=== PATIENT | female | born 1950 | race African-American/Black ===

== ENCOUNTER 2023-02-18 18:10 | Inpatient (IN) | payer MEDICARE, OTHER ==
[~2023-02-18] VITALS: Ht 162.6 cm; Wt 154.2 kg
[~2023-02-18 18:10] MED LIST: DILT60TA41 MT; ENOX40SY27 SQ; FURO-151 MT; LIP40 MT; METF-874 PO; METO-539 MT
[2023-02-18] MEDS ORDERED: HYDROCODONE/ACETAMINOPHEN 5/325MG TABLET PO STA (19:16)
[2023-02-18] MEDS ORDERED: LABETALOL HCL VIAL 20 MG/4 ML VIAL IV ONE (19:30)
[2023-02-18] MEDS ORDERED: LABETALOL 5MG/ML SYR 20 MG/4 ML SYRINGE IV NR (19:45)
[2023-02-18 20:18] LABS: BASOPHILS % 0.3 % (0.0-2.0); EOSINOPHILS % 1.9 % (0.0-5.0); HEMATOCRIT. 30.3 % (36.0-48.0); HEMOGLOBIN. 9.7 g/dL (12.0-16.0); LYMPHOCYTES % 18.5 % (20.0-50.0); MEAN CORPUSCULAR HEMOGLOBIN 24.2 pg (28.0-32.0); MEAN CORPUSCULAR VOLUME 75.5 fL (81.0-99.0); MEAN PLATELET VOLUME 7.4 fl (7.4-10.4); MONOCYTES % 8.7 % (2.0-8.0); NEUTROPHILS % 70.6 % (40.0-76.0); PLATELET 293 x1000/uL (130-400); RED BLOOD CELL COUNT 4.01 mill/uL (4.2-5.4); RED CELL DISTRIBUTION WIDTH 17.2 % (11.6-14.6)
[2023-02-18 20:22] LABS: CHLORIDE 110 mEq/L (98-107)
[2023-02-18 20:25] LABS: INR 1.5; PROTHROMBIN TIME 15.8 sec (9.6-11.0)
[2023-02-18] MEDS ORDERED: METOPROLOL SUCCINATE 50MG ER TABLET PO ONE (21:30)
[2023-02-18] MEDS ORDERED: CEFTRIAXONE 1GM PREMIX 50 ML IV NR (21:30)
[2023-02-19 04:25] VITALS: BP 143/81
[2023-02-19] MEDS ORDERED: DEXTROSE 50% WATER 50ML SYRINGE IV PRN (04:45)
[2023-02-19] MEDS: HYDROCODONE/ACETAMINOPHEN 5/325MG TABLET PO PRN ×2 (04:59→22:43)
[2023-02-19] MEDS ORDERED: ALBUTEROL (0.083%) 2.5MG/3ML NEB HHN SCH (05:00)
[2023-02-19] MEDS ORDERED: ALBUTEROL (0.083%) 2.5MG/3ML NEB HHN PRN (05:00)
[2023-02-19] MEDS ORDERED: IPRATROPIUM BROMIDE (0.02%) 0.5MG/2.5ML NEB HHN SCH (05:00)
[2023-02-19] MEDS ORDERED: IPRATROPIUM BROMIDE (0.02%) 0.5MG/2.5ML NEB HHN PRN (05:00)
[2023-02-19] MEDS: BLOOD SUGAR DIAGNOSTIC STRIP TEST SCH ×4 (06:49→20:59)
[2023-02-19] MEDS: INSULIN LISPRO 100 UNITS/ML SUBCUT SCH ×4 (07:50→20:59)
[2023-02-19 08:00] VITALS: BP 134/65
[2023-02-19] MEDS ORDERED: IPRATROPIUM/ALBUTEROL 0.5-3(2.5)MG/3ML NEB HHN SCH (08:00)
[2023-02-19] MEDS: AMLODIPINE 10MG TABLET PO SCH (09:36)
[2023-02-19] MEDS: ACETAMINOPHEN 650MG/20.3ML UDC PO PRN (09:59)
[2023-02-19 12:00] VITALS: BP 129/64
[2023-02-19 16:00] VITALS: BP 121/50
[2023-02-19] MEDS ORDERED: NALOXONE HCL 0.4MG/ML VIAL IV PRN (19:00)
[2023-02-19] MEDS ORDERED: ENOXAPARIN 40MG/0.4ML SYR SUBCUT SCH (21:00)
[2023-02-19] MEDS: ENOXAPARIN 40MG/0.4ML SYR SUBCUT SCH (22:00)
[2023-02-19] MEDS: PIPERACILLIN/TAZOBACTAM 3.375 G in DEXTROSE 5% WATER 50 ML IV SCH (22:15)
[2023-02-19 22:30] VITALS: BP 168/73
[2023-02-20] VITALS: BP 137/63
[2023-02-20] MEDS: IPRATROPIUM/ALBUTEROL 0.5-3(2.5)MG/3ML NEB HHN SCH ×7 (00:24→21:36)
[2023-02-20 04:00] VITALS: BP 149/65
[2023-02-20] MEDS: HYDROCODONE/ACETAMINOPHEN 5/325MG TABLET PO PRN ×2 (05:52→20:55)
[2023-02-20] MEDS: PIPERACILLIN/TAZOBACTAM 3.375 G in DEXTROSE 5% WATER 50 ML IV SCH ×3 (06:06→22:34)
[2023-02-20 06:54] LABS: BASOPHILS % 0.4 % (0.0-2.0); EOSINOPHILS % 2.3 % (0.0-5.0); HEMATOCRIT. 30.5 % (36.0-48.0); HEMOGLOBIN. 9.8 g/dL (12.0-16.0); LYMPHOCYTES % 25.6 % (20.0-50.0); MEAN CORPUSCULAR HEMOGLOBIN 23.9 pg (28.0-32.0); MEAN CORPUSCULAR VOLUME 74.6 fL (81.0-99.0); MEAN PLATELET VOLUME 7.6 fl (7.4-10.4); MONOCYTES % 9.9 % (2.0-8.0); NEUTROPHILS % 61.8 % (40.0-76.0); PLATELET 273 x1000/uL (130-400); RED BLOOD CELL COUNT 4.09 mill/uL (4.2-5.4); RED CELL DISTRIBUTION WIDTH 16.9 % (11.6-14.6)
[2023-02-20 07:03] LABS: INR 1.3; PROTHROMBIN TIME 13.4 sec (9.6-11.0)
[2023-02-20] MEDS: BLOOD SUGAR DIAGNOSTIC STRIP TEST SCH ×3 (07:20→21:00)
[2023-02-20] MEDS: INSULIN LISPRO 100 UNITS/ML SUBCUT SCH ×4 (07:45→20:59)
[2023-02-20 07:59] LABS: FERRITIN 42 ng/mL (10-291)
[2023-02-20 08:00] VITALS: BP 175/83
[2023-02-20 08:07] LABS: VITAMIN B12 SERUM 862 pg/mL (211-911)
[2023-02-20] MEDS: AMLODIPINE 10MG TABLET PO SCH (09:15)
[2023-02-20] MEDS: ENOXAPARIN 40MG/0.4ML SYR SUBCUT SCH ×2 (09:18→20:58)
[2023-02-20] MEDS: ACETAMINOPHEN 650MG/20.3ML UDC PO PRN ×2 (09:22→17:56)
[2023-02-20] MEDS: FUROSEMIDE 40MG/4ML VIAL IVP SCH (09:42)
[2023-02-20 12:00] VITALS: BP 139/65
[2023-02-20] MEDS: ALLOPURINOL 100 MG TABLET PO SCH (14:22)
[2023-02-20] MEDS ORDERED: METF-416 MT (14:23)
[2023-02-20] MEDS ORDERED: POTA-205 MT (14:23)
[2023-02-20] MEDS ORDERED: WARF7.5T48 PO (14:23)
[2023-02-20] MEDS ORDERED: WARF-53 PO ×2 (14:23)
[2023-02-20] MEDS ORDERED: FURO80TA87 MT (14:23)
[2023-02-20] MEDS ORDERED: ERGO1250 PO (14:23)
[2023-02-20] MEDS ORDERED: DILT-27 PO (14:32)
[2023-02-20] MEDS ORDERED: METO5TAB7 PO (14:37)
[2023-02-20 16:00] VITALS: BP 143/69
[2023-02-20] MEDS ORDERED: WARFARIN SODIUM 5MG TABLET PO NR (18:00)
[2023-02-20 20:00] VITALS: BP 101/59
[2023-02-21] VITALS: BP 120/63
[2023-02-21] MEDS: IPRATROPIUM/ALBUTEROL 0.5-3(2.5)MG/3ML NEB HHN SCH ×6 (00:26→21:40)
[2023-02-21 04:00] VITALS: BP 125/70
[2023-02-21] MEDS: HYDROCODONE/ACETAMINOPHEN 5/325MG TABLET PO PRN ×3 (04:48→18:23)
[2023-02-21] MEDS: PIPERACILLIN/TAZOBACTAM 3.375 G in DEXTROSE 5% WATER 50 ML IV SCH ×3 (06:34→21:41)
[2023-02-21] MEDS: BLOOD SUGAR DIAGNOSTIC STRIP TEST SCH ×4 (07:20→21:22)
[2023-02-21] MEDS: INSULIN LISPRO 100 UNITS/ML SUBCUT SCH ×4 (07:50→21:48)
[2023-02-21 08:00] VITALS: BP 124/59
[2023-02-21] MEDS: ENOXAPARIN 40MG/0.4ML SYR SUBCUT SCH ×2 (08:24→21:41)
[2023-02-21] MEDS: ALLOPURINOL 100 MG TABLET PO SCH (08:24)
[2023-02-21] MEDS: AMLODIPINE 10MG TABLET PO SCH (08:24)
[2023-02-21] MEDS: FUROSEMIDE 40MG/4ML VIAL IVP SCH (08:24)
[2023-02-21 10:41] LABS: INR 1.1; PROTHROMBIN TIME 12.2 sec (9.6-11.0)
[2023-02-21 12:00] VITALS: BP 101/59
[2023-02-21 16:00] VITALS: BP 122/63
[2023-02-21] MEDS ORDERED: WARFARIN SODIUM 7.5MG TABLET PO NR (18:00)
[2023-02-21 20:00] VITALS: BP 113/61
[2023-02-22] VITALS: BP 122/62
[2023-02-22] MEDS: IPRATROPIUM/ALBUTEROL 0.5-3(2.5)MG/3ML NEB HHN SCH ×7 (00:27→23:45)
[2023-02-22] MEDS: HYDROCODONE/ACETAMINOPHEN 5/325MG TABLET PO PRN ×3 (01:20→22:40)
[2023-02-22 04:00] VITALS: BP 101/65
[2023-02-22] MEDS: PIPERACILLIN/TAZOBACTAM 3.375 G in DEXTROSE 5% WATER 50 ML IV SCH ×3 (06:38→22:20)
[2023-02-22] MEDS: INSULIN LISPRO 100 UNITS/ML SUBCUT SCH ×4 (07:50→21:00)
[2023-02-22 07:52] LABS: BASOPHILS % 0.6 % (0.0-2.0); EOSINOPHILS % 3.2 % (0.0-5.0); HEMATOCRIT. 29.9 % (36.0-48.0); HEMOGLOBIN. 9.6 g/dL (12.0-16.0); MEAN CORPUSCULAR HEMOGLOBIN 24.3 pg (28.0-32.0); MEAN CORPUSCULAR VOLUME 75.4 fL (81.0-99.0); MEAN PLATELET VOLUME 7.5 fl (7.4-10.4); MONOCYTES % 12.4 % (2.0-8.0); NEUTROPHILS % 62.8 % (40.0-76.0); PLATELET 302 x1000/uL (130-400); RED BLOOD CELL COUNT 3.97 mill/uL (4.2-5.4); RED CELL DISTRIBUTION WIDTH 16.6 % (11.6-14.6)
[2023-02-22 07:58] LABS: INR 1.1; PROTHROMBIN TIME 11.9 sec (9.6-11.0)
[2023-02-22 08:13] LABS: CHLORIDE 105 mEq/L (98-107)
[2023-02-22] MEDS: BLOOD SUGAR DIAGNOSTIC STRIP TEST SCH ×4 (08:17→21:00)
[2023-02-22] MEDS: FUROSEMIDE 40MG/4ML VIAL IVP SCH (08:17)
[2023-02-22] MEDS: ALLOPURINOL 100 MG TABLET PO SCH (08:19)
[2023-02-22] MEDS: AMLODIPINE 10MG TABLET PO SCH (08:19)
[2023-02-22] MEDS: ENOXAPARIN 40MG/0.4ML SYR SUBCUT SCH ×2 (08:19→22:20)
[2023-02-22] MEDS ORDERED: WARFARIN SODIUM 7.5MG TABLET PO NR (18:00)
[2023-02-23] MEDS: IPRATROPIUM/ALBUTEROL 0.5-3(2.5)MG/3ML NEB HHN SCH ×4 (04:01→21:54)
[2023-02-23] MEDS: PIPERACILLIN/TAZOBACTAM 3.375 G in DEXTROSE 5% WATER 50 ML IV SCH ×3 (05:39→21:24)
[2023-02-23 06:44] LABS: INR 1.1; PROTHROMBIN TIME 11.9 sec (9.6-11.0)
[2023-02-23] MEDS: INSULIN LISPRO 100 UNITS/ML SUBCUT SCH ×4 (07:50→21:00)
[2023-02-23 08:00] VITALS: BP 128/56
[2023-02-23] MEDS: BLOOD SUGAR DIAGNOSTIC STRIP TEST SCH ×4 (08:13→21:15)
[2023-02-23] MEDS: FUROSEMIDE 40MG/4ML VIAL IVP SCH (08:58)
[2023-02-23] MEDS: ENOXAPARIN 40MG/0.4ML SYR SUBCUT SCH ×2 (08:58→21:25)
[2023-02-23] MEDS: ALLOPURINOL 100 MG TABLET PO SCH (08:58)
[2023-02-23] MEDS: AMLODIPINE 10MG TABLET PO SCH (08:59)
[2023-02-23] MEDS: HYDROCODONE/ACETAMINOPHEN 5/325MG TABLET PO PRN ×2 (09:48→18:18)
[2023-02-23 12:00] VITALS: BP 110/72
[2023-02-23 16:00] VITALS: BP 120/76
[2023-02-23] MEDS ORDERED: WARFARIN SODIUM 10MG TABLET PO NR (18:00)
[2023-02-23 20:00] VITALS: BP 124/65
[2023-02-24] VITALS: BP 159/76
[2023-02-24] MEDS: IPRATROPIUM/ALBUTEROL 0.5-3(2.5)MG/3ML NEB HHN SCH ×5 (02:02→17:17)
[2023-02-24] MEDS: HYDROCODONE/ACETAMINOPHEN 5/325MG TABLET PO PRN (02:26)
[2023-02-24 04:00] VITALS: BP 132/65
[2023-02-24] MEDS: PIPERACILLIN/TAZOBACTAM 3.375 G in DEXTROSE 5% WATER 50 ML IV SCH (05:13)
[2023-02-24] MEDS: BLOOD SUGAR DIAGNOSTIC STRIP TEST SCH ×4 (06:38→20:20)
[2023-02-24] MEDS: INSULIN LISPRO 100 UNITS/ML SUBCUT SCH ×4 (07:50→22:24)
[2023-02-24 08:00] VITALS: BP 167/68
[2023-02-24] MEDS: ENOXAPARIN 40MG/0.4ML SYR SUBCUT SCH ×2 (09:29→20:54)
[2023-02-24] MEDS: ALLOPURINOL 100 MG TABLET PO SCH (09:29)
[2023-02-24] MEDS: FUROSEMIDE 40MG/4ML VIAL IVP SCH (09:29)
[2023-02-24] MEDS: AMLODIPINE 10MG TABLET PO SCH (09:29)
[2023-02-24 10:44] LABS: INR 1.2; PROTHROMBIN TIME 12.8 sec (9.6-11.0)
[2023-02-24 12:00] VITALS: BP 135/66
[2023-02-24] MEDS: COLCHICINE 0.6MG TABLET PO SCH (13:42)
[2023-02-24 16:00] VITALS: BP 130/56
[2023-02-24] MEDS: ACETAMINOPHEN 650MG/20.3ML UDC PO PRN (16:47)
[2023-02-24] MEDS ORDERED: WARFARIN SODIUM 10MG TABLET PO NR (18:00)
[2023-02-24 20:00] VITALS: BP 114/56
[2023-02-25] VITALS: BP 119/68
[2023-02-25] MEDS: ACETAMINOPHEN 650MG/20.3ML UDC PO PRN ×3 (00:26→16:23)
[2023-02-25 04:00] VITALS: BP 147/75
[2023-02-25] MEDS: BLOOD SUGAR DIAGNOSTIC STRIP TEST SCH ×4 (06:36→21:28)
[2023-02-25 07:21] LABS: INR 1.4; PROTHROMBIN TIME 14.4 sec (9.6-11.0)
[2023-02-25] MEDS: INSULIN LISPRO 100 UNITS/ML SUBCUT SCH ×4 (07:50→21:26)
[2023-02-25 08:00] VITALS: BP 113/67
[2023-02-25] MEDS: ALLOPURINOL 100 MG TABLET PO SCH (09:06)
[2023-02-25] MEDS: COLCHICINE 0.6MG TABLET PO SCH (09:06)
[2023-02-25] MEDS: FUROSEMIDE 40MG/4ML VIAL IVP SCH (09:06)
[2023-02-25] MEDS: ENOXAPARIN 40MG/0.4ML SYR SUBCUT SCH ×2 (09:07→21:22)
[2023-02-25] MEDS: AMLODIPINE 10MG TABLET PO SCH (09:11)
[2023-02-25 12:00] VITALS: BP 115/66
[2023-02-25 16:00] VITALS: BP 115/64
[2023-02-25] MEDS ORDERED: WARFARIN SODIUM 10MG TABLET PO NR (18:00)
[2023-02-25 20:00] VITALS: BP 117/55
[2023-02-26] VITALS (7 sets, daily range): BP systolic 119–143; BP diastolic 50–74
[2023-02-26] MEDS: ACETAMINOPHEN 650MG/20.3ML UDC PO PRN ×2 (05:30→16:37)
[2023-02-26 06:55] LABS: INR 1.5; PROTHROMBIN TIME 15.7 sec (9.6-11.0)
[2023-02-26] MEDS: BLOOD SUGAR DIAGNOSTIC STRIP TEST SCH ×4 (07:05→20:49)
[2023-02-26] MEDS: INSULIN LISPRO 100 UNITS/ML SUBCUT SCH ×4 (07:50→20:38)
[2023-02-26] MEDS: ALLOPURINOL 100 MG TABLET PO SCH (09:50)
[2023-02-26] MEDS: COLCHICINE 0.6MG TABLET PO SCH (09:50)
[2023-02-26] MEDS: AMLODIPINE 10MG TABLET PO SCH (09:50)
[2023-02-26] MEDS: FUROSEMIDE 40MG/4ML VIAL IVP SCH (10:00)
[2023-02-26] MEDS: ENOXAPARIN 40MG/0.4ML SYR SUBCUT SCH ×2 (10:24→20:27)
[2023-02-26 15:35] LABS: BASOPHILS % 0.6 % (0.0-2.0); EOSINOPHILS % 3.5 % (0.0-5.0); HEMATOCRIT. 29.1 % (36.0-48.0); HEMOGLOBIN. 9.4 g/dL (12.0-16.0); LYMPHOCYTES % 24.2 % (20.0-50.0); MEAN CORPUSCULAR HEMOGLOBIN 23.8 pg (28.0-32.0); MEAN PLATELET VOLUME 7.4 fl (7.4-10.4); MONOCYTES % 9.3 % (2.0-8.0); NEUTROPHILS % 62.4 % (40.0-76.0); PLATELET 365 x1000/uL (130-400); RED BLOOD CELL COUNT 3.94 mill/uL (4.2-5.4); RED CELL DISTRIBUTION WIDTH 16.2 % (11.6-14.6)
[2023-02-26 15:58] LABS: CHLORIDE 106 mEq/L (98-107)
[2023-02-26] MEDS ORDERED: WARFARIN SODIUM 10MG TABLET PO NR (18:00)
== END 2023-02-26 21:00 | DRG 603 ==
LOC: ER 18:10 → MICUSO 23:32 → 6EST 02-19 02:25
PROVIDERS: ADMIT Internal Medicine; ATTEND Internal Medicine
DX: L03.115 Cellulitis of right lower limb (principal); E87.0 Hyperosmolality and hypernatremia; I50.9 Heart failure, unspecified; I27.20 Pulmonary hypertension, unspecified; E11.65 Type 2 diabetes mellitus with hyperglycemia; I11.0 Hypertensive heart disease with heart failure; E66.9 Obesity, unspecified; D64.9 Anemia, unspecified; Z95.2 Presence of prosthetic heart valve; I48.91 Unspecified atrial fibrillation; M10.9 Gout, unspecified; Z20.822 Contact with and (suspected) exposure to COVID-19; Z79.01 Long term (current) use of anticoagulants; Z82.49 Family history of ischemic heart disease and other diseases of the circulatory system; Z88.8 Allergy status to other drugs, medicaments and biological substances
CPT/HCPCS: 36415; 71045; 73630; 73700; 80048; 80053; 82607; 82728; 82962; 83036; 83540; 83550; 84145; 84550; 85025; 87426; 93005; 93971; 94640; 97162; 97166; 97530; 99285; A6261; C1893; J0696; J1650; J1815; J1940; J2543; J3490; J7060

== ENCOUNTER 2025-11-06 06:23 | Emergency (ER) | payer MEDICARE, OTHER ==
[~2025-11-06] VITALS: Ht 170.2 cm; Wt 105.0 kg
[~2025-11-06 06:23] MED LIST changes: +DILT-27 PO; -DILT60TA41 MT; -ENOX40SY27 SQ; +ERGO1250 PO; -FURO-151 MT; +FURO80TA87 MT; -LIP40 MT; +METF-416 MT; -METF-874 PO; -METO-539 MT; +METO5TAB7 PO; +POTA-205 MT; +WARF-53 PO; +WARF7.5T48 PO
[2025-11-06 06:28] VITALS: O2SAT 100
[2025-11-06] MEDS: FUROSEMIDE 40MG/4ML VIAL IVP SCH (08:27)
[2025-11-06] MEDS ORDERED: FURO-151 PO (08:28)
[2025-11-06 08:44] LABS: BASOPHILS % 0.7 % (0.0-2.0); EOSINOPHILS % 2.7 % (0.0-5.0); HEMATOCRIT. 33.9 % (36.0-48.0); HEMOGLOBIN. 10.8 g/dL (12.0-16.0); LYMPHOCYTES % 24.0 % (20.0-50.0); MEAN PLATELET VOLUME 7.3 fl (7.4-10.4); MONOCYTES % 9.7 % (2.0-8.0); NEUTROPHILS % 62.9 % (40.0-76.0); PLATELET 228 x1000/uL (130-400); RED BLOOD CELL COUNT 4.20 mill/uL (4.2-5.4); RED CELL DISTRIBUTION WIDTH 15.5 % (11.6-14.6)
[2025-11-06 08:59] LABS: CREATININE 1.2 mg/dL (0.6-1.0)
[2025-11-06 09:00] LABS: UREA NITROGEN BLOOD 15 mg/dL (9-23)
[2025-11-06 09:02] LABS: PHOSPHORUS 3.3 mg/dL (2.5-4.9)
[2025-11-06 14:00] VITALS: BP 135/75; PULSE 90; RESP 17; TEMP 37.1; O2SAT 99
== END 2025-11-06 14:12 | disposition home or self-care (01) ==
LOC: ER 06:23
DX: I27.20 Pulmonary hypertension, unspecified (principal); I11.0 Hypertensive heart disease with heart failure; E11.9 Type 2 diabetes mellitus without complications; I48.91 Unspecified atrial fibrillation; F10.90 Alcohol use, unspecified, uncomplicated; Z79.01 Long term (current) use of anticoagulants; Z79.84 Long term (current) use of oral hypoglycemic drugs; Z79.899 Other long term (current) drug therapy; Y90.9 Presence of alcohol in blood, level not specified
CPT/HCPCS: 99285; 96374; 71045; 80048; 83880; 83735; 84100; 85025; 85379; 36415; J1938; A4606